=== PATIENT | female | born 1975 | race Caucasian/White ===

== ENCOUNTER 2018-01-16 14:25 | Emergency (ER) | payer OTHER ==
--- NOTE | 2018-01-16 15:43 | XR ---
Right foot HISTORY: Trauma and pain 3 views of the right foot Soft tissue swelling is noted. Bone mineralization, joint spaces and alignment are maintained with ex ception of questionable intra-articular lucency at the proximal interphalangeal joint involving the p roximal aspect of the middle phalanx of the fifth digit. This is seen best on the oblique view. Fifth digit is somewhat flexed. IMPRESSION: No dislocation is evident. Possible nondisplaced fracture.
== END 2018-01-16 16:38 | disposition home or self-care (01) ==
LOC: EC 14:25
DX: S92.524A Nondisplaced fracture of middle phalanx of right lesser toe(s), initial encounter for closed fracture (principal); W10.9XXA Fall (on) (from) unspecified stairs and steps, initial encounter
CPT/HCPCS: 99283